=== PATIENT | male | born 1960 | race Caucasian/White ===

== ENCOUNTER 2020-03-19 13:32 | Emergency (ER) | payer BC, SELFPAY ==
[2020-03-19 13:34] VITALS: BP 171/123; PULSE 98; RESP 18; TEMP 37.2; O2SAT 93; BMI 37.3
--- NOTE | 2020-03-19 14:30 | ED.DEP ---
ED Disposition - Plan for ED Patient: Instructions: ED Laceration Scalp Sutures or [place]
--- NOTE | 2020-03-19 14:33 | ED.VISSUMM ---
- ER Visit Summary Date of Service: 03/19/20 Chief Complaint: Laceration History of Present Illness: The patient is a 59 M presenting with laceration to scalp. Patient was mowing his lawn and a tree branch brushed up against his head. He sustained a laceration to his scalp. He did not fall off the lawnmower. Denies loss of consciousness. He is not on anticoagulants. His tetanus is up-to-date. Denies nausea, vomiting, headache, other symptoms. Physical Examination: Vitals are stable. Patient is afebrile. Alert no acute distress. HEENT exam 5 cm right scalp laceration Neck is nontender Lungs are clear and equal bilaterally. Heart is regular rate and rhythm. Extremities are unremarkable. Skin is warm and dry. No focal neurologic deficit. Remainder of exam is unremarkable. Emergency Department Course and Treatment: Wound was irrigated. Anesthetized with lidocaine. 7 alexis were placed. Patient tolerated this well. Advised wound care instructions. Disposition: Discharge home Impression: Scalp laceration, laceration repair This note was generated with [employer] dictation software. It may contain incorrect words, spelling, and punctuation that were not noted in review of the chart prior to signing ED Disposition - Plan for ED Patient: Instructions: ED Laceration Scalp Sutures or [place]
[2020-03-19 14:41] VITALS: BP 166/105; PULSE 95; RESP 14; O2SAT 99
== END 2020-03-19 14:56 | disposition home or self-care (01) ==
LOC: ED 14:39
PROVIDERS: Emergency Provider Emergency Medicine; PCP Internal Medicine Geriatric Medicine
DX: S01.01XA Laceration without foreign body of scalp, initial encounter (principal); W22.09XA Striking against other stationary object, initial encounter; Y93.H9 Activity, other involving exterior property and land maintenance, building and construction; Y92.9 Unspecified place or not applicable; Y99.9 Unspecified external cause status; I10 Essential (primary) hypertension
CPT/HCPCS: 12002; 99283

== ENCOUNTER 2021-01-11 12:58 | Outpatient (RCR) | payer BC, SELFPAY ==
[2021-01-11] MEDS: COVID-19 VACC, MRNA(PFIZER)/PF 30 MCG/0.3 ML SYRINGE IM (11:05)
[2021-02-01] MEDS: COVID-19 VACC, MRNA(PFIZER)/PF 30 MCG/0.3 ML SYRINGE IM (11:09)
== END 2021-01-11 23:59 ==
LOC: IMMUN 12:58
PROVIDERS: PCP Internal Medicine Geriatric Medicine; Visit Provider Family Medicine
DX: Z23 Encounter for immunization (principal)
CPT/HCPCS: 0001A; 0002A; 91300